=== PATIENT | female | born 1960 | race Caucasian/White ===

== ENCOUNTER 2017-01-12 07:09 | Day surgery (SDC) | payer OTHER ==
[~2017-01-12 07:09] MED LIST: ceFAZolin 2 GM/DEXTROSE 100 ML IV ONE
[2017-01-12] MEDS ORDERED: BUPIVACAINE 0.5% 30 ML SDV ONE (07:18)
[2017-01-12] MEDS ORDERED: LIDOCAINE 1% 30 ML SDV ONE (07:40)
[2017-01-12] MEDS ORDERED: LR 1,000 ML IV ONE (07:46)
[2017-01-12] MEDS ORDERED: LIDOCAINE 1% 5 ML SDV ID PRN (07:46)
[2017-01-12] MEDS ORDERED: LIDOCAINE 1% 2 ML INJ ONE (07:49)
[2017-01-12] MEDS ORDERED: fentaNYL 100 MCG/2 ML INJ ONE (08:28)
[2017-01-12] MEDS ORDERED: ONDANSETRON 4 MG/2 ML VIAL ONE (08:59)
--- NOTE | 2017-01-12 09:44 | GOP ---
[f rep st] OPERATIVE REPORT DATE OF OPERATION: 01/12/2017 SURGEON: Bharati Ibarra MD ANESTHESIA: Dr. Loida Holman/monitored anesthesia care with IV sedation. PREOPERATIVE DIAGNOSIS: Fallopian tube cancer. POSTOPERATIVE DIAGNOSIS: Fallopian tube cancer. PROCEDURE PERFORMED: Right subclavian power port placement. FINDINGS: Tip at the RA junction. SPECIMENS: None. ESTIMATED BLOOD LOSS: 10 cc. INDICATIONS: The patient is a 56-year-old woman who has undergone surgery for fallopian tube cancer . She requires intravenous port for chemotherapy. DESCRIPTION OF PROCEDURE: The patient was brought into the operating room, placed supine on the tab le. Monitored anesthesia care with IV sedation was performed. Her bilateral neck and chest were pr epped and draped in the usual sterile fashion. She was placed in the Trendelenburg position. Her c hest was infiltrated with 27 cc of 0.5% Marcaine mixed with 1% lidocaine. I accessed the right subc lavian vein on the first attempt with dark return of blood flow. I threaded the guidewire and remov ed the needle. Placement was confirmed with fluoroscopy. I created a pocket to accommodate the por t in the right chest. I tunneled the port up to the insertion site. Under fluoroscopy, I measured the catheter and cut it to size. Using the Seldinger technique, I placed a dilator and sheath over the wire. I removed the wire and the dilator. The catheter was thread through the sheath and I pee led away the sheath. Placement was confirmed with fluoroscopy. The port withdrew blood easily and was flushed with 5 cc of heparin. The pocket was closed with 3-0 Vicryl followed by 4-0 Monocryl. Dermabond applied. She was awakened in the operating room, transferred to PACU in stable condition. /[id number]/MODL
== END 2017-01-12 10:30 | disposition home or self-care (01) ==
LOC: FSGY 07:09
PROVIDERS: ATTEND Surgery
PROC: 02HV33Z Insertion of Infusion Device into Superior Vena Cava, Percutaneous Approach (ICD-10-PCS; principal; 2017-01-12 08:45)
PROC: 0JH60WZ Insertion of Totally Implantable Vascular Access Device into Chest Subcutaneous Tissue and Fascia, Open Approach (ICD-10-PCS; principal; 2017-01-12 08:45)
DX: C57.00 Malignant neoplasm of unspecified fallopian tube (principal)
CPT/HCPCS: C1788; J0690; J1642; J2405; J3010

== ENCOUNTER 2017-10-06 14:03 | Emergency (ER) | payer OTHER ==
[2017-10-06 14:46] VITALS: RESP 20
--- NOTE | 2017-10-06 15:08 | EDPHY ---
General Narrative: CHIEF COMPLAINT: Foot and toe injury HISTORY OF PRESENT ILLNESS: Patient complains of pain in the right foot and 3rd toe. She reports accidentally stepping her foot on a piece of wood near her stairs at home. She bent the toe backwards. Difficult for to quantify or describe the pain as she has neuropathy status post chemotherapy. She does have pain in the distal midfoot and proximal 3rd toe. No laceration or puncture. No pain in the right ankle, bailey or knee. No injury elsewhere. It is worse with ambulation and palpation. Improved at rest. No other associated complaints or modifying factors. ESTABLISHED ORTHOPEDIST: None REVIEW OF SYSTEMS: Ten systems reviewed and are negative unless otherwise noted in the HPI PAST MEDICAL HISTORY: Ovarian cancer status post chemotherapy PAST SURGICAL HISTORY: No recent surgeries SOCIAL HISTORY: Nonsmoker. Lives here locally with her spouse FAMILY HISTORY: Noncontributory EXAMINATION General Appearance: Alert, no distress Cardiovascular: 2+ DP and PT pulses symmetrically. Brisk cap refill. Good signs of perfusion Neurological: A&O, light sensation to the top of the foot symmetric. Good strength of the right foot Skin: Warm and dry, no rash. No puncture laceration. No cellulitis. Mild ecchymosis to the right 3rd toe dorsum Extremities: Tenderness of the right 3rd toe and on the distal right midfoot. No crepitus or deformity. No tenderness with firm palpation of the right calcaneus. No tenderness of the ankle, bailey or proximal fibula. No puncture laceration Psychiatric: Mood and affect normal DIFFERENTIAL DIAGNOSES: Including but not limited to fracture, hematoma, sprain, strain, dislocation MDM: 3:08 p.m. Pain in the left distal midfoot and 3rd toe from an injury within the past 2 hr. She is neuro intact. She does have baseline neuropathy cells difficult for her to describe her pain. She has no laceration or puncture. X-ray of the area has been ordered. She is in no acute distress. She is declining any ibuprofen or pain medicine at this time. 3:30 p.m. X-ray as read by me, without aid of the radiologist, reveals fracture of the middle phalanx of the right 3rd toe. 2 fractures identified with minimal displacement. No fracture of the mid foot identified. 3:40 p.m. Patient re-evaluated. I informed her the x-ray findings. She remains neuro intact. She will be placed in a postoperative shoe. She will provided the on- call orthopedist for outpatient follow-up and definitive care. She is declining a prescription for pain medication. She is comfortable this plan. She will be discharged home stable condition SUPERVISION: This patient was independently evaluated without direct involvement of or examination by the attending physician. ED Precautions: Worsening pain. Erythema, edema, cyanosis, pallor, paresthesia or anesthesia. - History Smoking Status: Former smoker - Objective Vital Signs: Initial Vital Signs Heart Rate 56 L 10/06/17 14:42 Respiratory Rate 20 10/06/17 14:42 Blood Pressure 99/58 L 10/06/17 14:42 O2 Sat (%) 96 10/06/17 14:42 O2 Delivery Mode Room Air Allergies/Adverse Reactions: Milk Containing Products [dairy] Allergy (Verified 01/11/17 17:28) Other-Enter Comments wheat Allergy (Verified 01/11/17 17:28) Other-Enter Comments Home Medications: Medication Instructions Recorded Melatonin 01/11/17 Metformin HCl 10/06/17 Departure - Departure Disposition: Home, Routine, Self-Care Clinical Impression: Fracture of third toe, right, closed Qualifiers: Encounter type: initial encounter Qualified Code(s): S92.501A - Displaced unspecified fracture of right lesser toe(s), initial encounter for closed fracture Condition: Good Instructions: Toe Fracture (ED) Additional Instructions: 1. Ice and elevation as needed 2. Contact the on-call orthopedist for definitive care 3. Anti-inflammatories as discussed [id number] dosing as needed 4. Postop shoe when ambulatory 5. ED precautions as discussed Referrals: Nara Barba NP [Primary Care Provider] - As per Instructions Fuad Ospina MD [Medical Doctor] - As per Instructions
[2017-10-06 16:12] VITALS: BP 95/51; PULSE 76; TEMP 98.2; O2SAT 93
== END 2017-10-06 16:12 | disposition home or self-care (01) ==
DX: S92.501A Displaced unspecified fracture of right lesser toe(s), initial encounter for closed fracture (principal); Z85.43 Personal history of malignant neoplasm of ovary; Z87.891 Personal history of nicotine dependence; X58.XXXA Exposure to other specified factors, initial encounter; Y92.009 Unspecified place in unspecified non-institutional (private) residence as the place of occurrence of the external cause
CPT/HCPCS: L4386

== ENCOUNTER → 2017-10-07 | Outpatient (CLI) | payer OTHER | LOC: BMCIMAGING 15:09 | PROVIDERS: ATTEND Podiatrist Foot & Ankle Surgery | DX: Z47.89 Encounter for other orthopedic aftercare (principal); S92.501A Displaced unspecified fracture of right lesser toe(s), initial encounter for closed fracture ==

== ENCOUNTER → 2017-10-26 | Outpatient (CLI) | payer OTHER | LOC: BMCIMAGING 13:42 | PROVIDERS: ATTEND Podiatrist Foot & Ankle Surgery | DX: S92.501D Displaced unspecified fracture of right lesser toe(s), subsequent encounter for fracture with routine healing (principal); S92.524A Nondisplaced fracture of middle phalanx of right lesser toe(s), initial encounter for closed fracture ==

== ENCOUNTER → 2017-11-22 | Outpatient (CLI) | payer OTHER | LOC: BMCIMAGING 14:04 | PROVIDERS: ATTEND Podiatrist Foot & Ankle Surgery | DX: S92.501D Displaced unspecified fracture of right lesser toe(s), subsequent encounter for fracture with routine healing (principal); S92.591A Other fracture of right lesser toe(s), initial encounter for closed fracture ==